=== PATIENT | female | born 1995 | race Caucasian/White ===

== ENCOUNTER 2022-08-20 16:46 | Emergency (ER) | payer BC ==
[~2022-08-20] VITALS: Ht 152.4 cm; Wt 66.7 kg
[2022-08-20 16:53] VITALS: BP 129/78
[2022-08-20] MEDS ORDERED: IBUP-2213 PO (18:15)
[2022-08-20] MEDS ORDERED: LIDO15SO PO (18:15)
[2022-08-20] MEDS ORDERED: PROM118S5 PO (18:15)
--- NOTE | 2022-08-20 18:31 | NUR ---
Patient discharged with v/s stable. Written and verbal after care instructions ABOUT UPPER RESPIRATORY INFECTION AND LARYNGITIS given and explained. Patient alert, oriented and verbalized understanding of instructions. Ambulatory with steady gait. All questions addressed prior to discharge. ID band removed. Patient advised to follow up with PMD. Rx of IBUPROFEN, LIDOCAINE VISCOUS, AND PROMETHAZINE DM given. Patient educated on indication of medication including possible reaction and side effects. Opportunity to ask questions provided and answered.
== END 2022-08-20 18:31 | disposition home or self-care (01) ==
LOC: MED 16:46
DX: J06.9 Acute upper respiratory infection, unspecified (principal); J04.0 Acute laryngitis; J45.909 Unspecified asthma, uncomplicated
CPT/HCPCS: 99283